=== PATIENT | female | born 1970 | race Caucasian/White ===

== ENCOUNTER 2018-10-17 00:09 | Outpatient (CLI) | payer MEDICAID, SELFPAY ==
--- NOTE | 2018-10-17 15:35 | DI.RAD_ITS ---
SYMPTOMS/DIAGNOSIS: RT GREAT TOE PAIN, ? BUNION, PAIN RT TOES, M79.674, HAS HAD SEVERAL STUBBING INJURIES RIGHT FOOT: Three views. There is normal alignment at the great toe. There is joint space narrowing and osteophyte presence. The bones are normally mineralized. No suspicious lytic or sclerotic lesions are seen. No radiopaque foreign bodies are seen in the soft tissues. 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
== END 2018-10-17 00:29 ==
DX: M79.674 Pain in right toe(s) (principal); M19.071 Primary osteoarthritis, right ankle and foot
CPT/HCPCS: 73630

== ENCOUNTER 2018-10-21 00:02 | Outpatient (CLI) | payer MEDICAID, SELFPAY ==
[2018-10-21 12:48] LABS: ALT 21 U/L (12-78); AST 16 U/L (15-37); Albumin 3.8 g/dL (3.4-5.0); Alkaline Phosphatase 64 U/L (46-116); Anion Gap 6.5 mmol/L (3-11); BUN 18 mg/dL (7-18); CO2 31.5 mmol/L (21.0-32.0); CREATININE 0.66 mg/dL (0.55-1.02); Chloride 106 mmol/L (98-107); Cholesterol 196 mg/dL (50-200); Glucose 87 mg/dL (70-100); HDL Cholesterol 60 mg/dL (40-60); LDL CHOLESTEROL 118 mg/dL (<100); Potassium 4.1 mmol/L (3.5-5.1); Sodium 144 mmol/L (136-145); Total Protein 7.1 g/dL (6.4-8.2); Triglyceride 112 mg/dL (30-150)
== END 2018-10-21 00:22 ==
DX: R41.840 Attention and concentration deficit (principal); M79.676 Pain in unspecified toe(s); G89.29 Other chronic pain
CPT/HCPCS: 36415; 80053; 80061; 83721

== ENCOUNTER 2018-12-18 08:48 | Outpatient (CLI) | payer MEDICAID, SELFPAY ==
[2018-12-18 11:27] LABS: TSH (W/Ref FT4) 0.84 uIU/mL (0.358-3.74)
== END 2018-12-18 09:08 ==
PROVIDERS: Visit Provider Internal Medicine
DX: E04.9 Nontoxic goiter, unspecified (principal)
CPT/HCPCS: 36415; 84443

== ENCOUNTER 2019-07-23 12:48 | Day surgery (SDC) | payer MEDICAID, SELFPAY ==
--- NOTE | 2019-07-23 06:59 | W.UPDATEHP ---
Date of service: 07/23/19 Time of Service: 13:31 Updated H&P Refer to Most Recent Clinic Note/H&P Dated: 07/12/19 H&P was reviewed,patient examined No change has occured in patient's condition since last H&P completed
--- NOTE | 2019-07-23 07:00 | W.COLOREPORT ---
Date of service: 07/23/19 Time of Service: 13:48 Colonoscopy Report Date of procedure: 07/23/19 Pre-op diagnosis general: Colon Cancer Screening Post-op diagnosis procedure note: same (? small polyps, internal hemorrhoids) Procedure: Colonoscopy with bx and hemorrhoid banding Surgeon: Radha Grajeda Anesthesia proc note operative: other (General/ ASA 2/Zane Ayala, VINNIE) Estimated blood loss (mL): 4 Pathology: other (Ascending colon Polyp) Complications: None Disposition: no change Indications: (2) Encounter for screening colonoscopy: The patient is here for Colonoscopy pre-op. Her last screening was in 2011 and was unremarkable. She has a family history of colon cancer in her father. She has not had any bowel habit changes. -Discussed colonoscopy bowel prep as well as the procedure. Discussed possible complications of the procedure to include bleeding, pain, perforation, missed small lesion/polyp, sore throat, aspiration and adverse reaction to the medications. Questions were answered to patient?s satisfaction. No guarantees were implied or given. Prep: Miralax/Dulcolax Procedure Start Time: 13:48 Procedure End Time: 14:11 Retraction Time: 17 minutes Findings: cluster of < 2 mm polyps ?- removed with cold forceps Grade 1 internal hemorrhoids. One was a bit larger so it was banded Procedure Description: After informed consent was obtained the patient was taken to the procedure room and placed in a left decubitous position. Monitors were applied and a time out was done. The patients name, date of , procedure, allergies to medications and metal in their body was reviewed. The patient was then sedated. Once sedated and comfortable a rectal exam was done. External exam was normal. Internal exam revealed a normal sphincter tone and no palpable masses. . The scope was then introduced and retro-flexed. Grade 1 internal hemorrhoids were identified. There were no polyps or masses on retro=flexion. The scope was then advanced to the cecum without difficulty. The TI and appendiceal orifice were identified. The prep was adequate. The scope was then slowly retracted over 17 minutes back into the rectum. There was a cluster of <2 mm polyps just past the cecum in the ascending colon. These small polyps were removed with cold forceps. Once back into the rectum, the scope was removed and the Bandit was placed on the scope. The scope was placed back into the rectum and retro-flexed and the larger of the hemorrhoids was banded without difficulty. The scope was removed and the patient was woken up and taken back to Same day surgery in stable condition. The patient tolerated the procedure well and there were no immediate complications. Follow up: The patient should follow up in 3-5 years unless they develop changes in bowel habits or other new gastrointestinal complaints.
--- NOTE | 2019-07-23 07:01 | W.PM.DSUDISC ---
Discharge Plan Disposition Patient Disposition: HOME Condition: Good Discharge Details Reason For Visit: Colon Cancer Screening Attending Provider: Radha Grajeda Primary Care Provider: Umu Martines Home Meds and New Rx's Prescriptions: Continued ibuprofen 600 mg tablet 600 mg PO QID PRNRF: 0 dexmethylphenidate [Focalin XR] 20 mg capsule,ER biphasic 50-50 20 mg PO QAM MDD 20mg Qty: 30 RF: 0 Discontinued polyethylene glycol 3350 17 gram/dose powder 255 g PO ONCE Qty: 255 RF: 0 bisacodyl [Dulcolax (bisacodyl)] 5 mg tablet,delayed release (DR/EC) 5 mg PO ONCE Qty: 4 RF: 0 Discharge Instructions Instructions: Hemorrhoids (DC), Rubber Band Ligation (DC) Additional Instructions: Findings: small cluster of small polyps One larger internal hemorrhoid that was banded Follow up: 3-5 years Please call if you develop: fevers >101.5 Nausea or Vomiting Abdominal pain that is not transient DAY SURGERY UNIT POST ENDOSCOPY INSTRUCTIONS 1. Because there will be medication in your system for the next 24 hours, you may feel a little sleepy. Your coordination will be affected. Therefore: a. Do not drive or operate dangerous equipment for 24 hours. b. Do not drink alcohol beverages for 24 hours (not even beer). c. Plan to go home and rest for the day. 2. Generally there are no restrictions on your activity after a day or so has gone by, but you may feel a bit fatigued for a few days. 3 After you arrive home you may have a light meal and return to a normal diet as you can tolerate it without feeling sick to your stomach. 4. After surgery, you may feel pain or discomfort. This should be only transient, but if it persists please contact your doctor. 5. If there are any questions regarding the findings of your procedure, please feel free to contact your doctor. 6. If you are unable to contact your doctor with a problem, contact the hospital at [phone]. 7. Continue all your regular medications unless directed otherwise. I understand the above instructions and have no questions. Signature of Patient or Responsible Adult Escort Date/Time Name of Responsible Adult Escort Signature of Nurse Date/Time Activity:: Activity as Tolerated Diet:: High Fiber Discharge Orders Discharge Orders: Discharge Order (Routine); Ordered 07/23/19 Ordered By: Radha Grajeda DS: Diagnosis Discharge Diagnosis (1) History of colonoscopy: Status: Chronic
[2019-07-23 13:04] VITALS: BP 106/71; PULSE 68; RESP 18; TEMP 36.5; O2SAT 99
[2019-07-23] MEDS: Lactated Ringers 1,000 ML 80 ML IV (13:21)
--- NOTE | 2019-07-23 13:31 | HPE_ITS ---
Date of service: 07/23/19 Time of Service: 13:31 Updated H&P Refer to Most Recent Clinic Note/H&P Dated: 07/12/19 H&P was reviewed,patient examined No change has occured in patient's condition since last H&P completed cc: Dictated by: VANNESSA LACKEY MD Dictated: 07/23/19Time: 658 <Electronically signed by Radha Lackey M.D.> Date: 09/22/18 133 Date: Date: Transcribed Date: 07/23/19 Transcribed Time: 658By: MARIA FERNANDA
--- NOTE | 2019-07-23 13:57 | BOWEL_PTH ---
PATIENT: Troy Curiel LOC: [facility] U#:[id number] AGE/SX: 48/F ROOM: RE07/23/[address]: Radha Grajeda MD : 1970 BED: DIS: 07/23/2019 SPEC #: [id number] RECD: 07/24/19 11:00 STATUS: ADDIE REQ #: [id number] JEFFERY: 07/23/19 13:[address]: Radha Grajeda DEPT: Surgical Specimen RECD BY: Aneta Arreola ENTERED: 07/24/19 11:00 SP TYPE: Bowel OTHR DR: Umu Martines APRN Tissues: 1 - BIOPSY BOWEL Procedures: GROSS AND MICRO LEVEL 4 Comments: [id number]
[2019-07-23 15:00] VITALS: BP 121/80; PULSE 63; RESP 18; TEMP 36.1; O2SAT 100
== END 2019-07-23 15:05 | disposition home or self-care (01) ==
LOC: SUR 12:49
PROVIDERS: Visit Provider Surgery
PROC: 0DJD8ZZ Inspection of Lower Intestinal Tract, Via Natural or Artificial Opening Endoscopic (ICD-10-PCS; CPT 45378; principal; 2019-07-23 13:00)
DX: Z12.11 Encounter for screening for malignant neoplasm of colon (principal); K64.0 First degree hemorrhoids; Z80.0 Family history of malignant neoplasm of digestive organs
CPT/HCPCS: 45380; 45398; 81025; 88305; J2250; J3010

== ENCOUNTER 2019-10-29 01:34 | Outpatient (CLI) | payer MEDICAID, SELFPAY ==
--- NOTE | 2019-10-29 10:00 | DI.MAMMO_ITS ---
EXAM: MAMMO SCREENING CLINICAL HISTORY: screening, Z12.39 TECHNIQUE: Mammograms were interpreted according to the usual protocol including computer analysis w [employer] CAD system, tomosynthesis and C-view imaging. COMPARISON: This is a baseline examination. FINDINGS: The breasts are composed of heterogeneously dense fibroglandular densities, Breast Density category C . No suspicious masses or suspicious microcalcifications are seen. No skin thickening or abnormal axillary lymph nodes are seen. There has been no significant change from prior exams. IMPRESSION: BIRADS Category 1, negative mammogram. Yearly screening mammography is recommended. BREAST DENSITY: The mammogram demonstrates the patient's breast tissue is dense. Dense breast tissue is very common and is not abnormal but dense breast tissue can make it harder to find cancer on a ma mmogram. Also, dense breast tissue may increase breast cancer risk. This information about the result of the mammogram report was provided to the patient to raise their awareness. Use this report when y ou speak with the patient about their risks for breast cancer, which includes their family history. A t that time, you may recommend additional screening tests (Ultrasound or MRI) as they might be useful based on their risk. A negative radiographic report should not delay biopsy if a dominant or clinically suspicious mass is present. Up to ten percent of cancers are not identified on mammography. A negative report may reinforce clinical impression. Adenosis and dense breasts may obscure an underlying neoplasm. False positive reports average 6 to 10%.
--- NOTE | 2019-10-29 10:00 | DI.US_ITS ---
EXAM: US THYROID CLINICAL HISTORY: THYROID ENLARGEMENT, THYROID CONDITION, E07.9 TECHNIQUE: Ultrasound performed using standard protocol. COMPARISON: No exams were available for comparison FINDINGS: Right lobe of the thyroid measures 4.2 x 1.1 x 1.6 cm. The left lobe measures 4.3 x 1.4 x 1.4 cm. The overall echotexture is homogeneous. 7 millimeter hypoechoic nodule is seen in the mid left lobe. The thyroid vascularity appears within normal limits. IMPRESSION: TI-RADS category 2. Small benign-appearing nodule in the left lobe. DATA REPOSITORY:
== END 2019-10-29 01:54 ==
PROVIDERS: Visit Provider Nurse Practitioner
DX: Z12.31 Encounter for screening mammogram for malignant neoplasm of breast (principal); E04.1 Nontoxic single thyroid nodule; E07.9 Disorder of thyroid, unspecified
CPT/HCPCS: 77063; 77067; 76536

== ENCOUNTER 2020-10-13 15:55 | Outpatient (CLI) | payer MEDICAID, SELFPAY ==
--- NOTE | 2020-10-13 15:15 | DI.RAD_ITS ---
EXAM: XR KNEE LT 3V AP,LAT,RACHID CLINICAL HISTORY: persistent knee pain TECHNIQUE: COMPARISON: No exams were available for comparison FINDINGS: Three views were obtained. The cartilaginous joint spaces appear fairly well maintained. Minimal ma rginal osteophyte formation noted at multiple sites involving all 3 joints of the knee. IMPRESSION: Mild DJD of the knee. RADIATION DOSE DELIVERED: Total DLP
== END 2020-10-13 15:56 | disposition home or self-care (01) ==
LOC: DIORS 15:56
PROVIDERS: Visit Provider Physician Assistant Surgical
DX: M17.12 Unilateral primary osteoarthritis, left knee (principal)
CPT/HCPCS: 73562

== ENCOUNTER 2020-10-20 02:55 | Outpatient (CLI) | payer MEDICAID, SELFPAY ==
[2020-10-20 08:40] LABS: ALT 21 U/L (14-59); AST 16 U/L (15-37); Albumin 3.8 g/dL (3.4-5.0); Alkaline Phosphatase 73 U/L (46-116); Anion Gap 6.1 mmol/L (3-11); BUN 19 mg/dL (7-18); Bilirubin, Total 0.4 mg/dL (0.2-1.0); CO2 31.9 mmol/L (21.0-32.0); CREATININE 0.8 mg/dL (0.55-1.02); Calcium 9.2 mg/dL (8.5-10.1); Chloride 104 mmol/L (98-107); Glucose 96 mg/dL (74-106); Sodium 142 mmol/L (136-145); Total Protein 7.1 g/dL (6.4-8.2)
== END 2020-10-20 02:56 | disposition home or self-care (01) ==
DX: Z00.00 Encounter for general adult medical examination without abnormal findings (principal); M79.662 Pain in left lower leg
CPT/HCPCS: 36415; 80053

== ENCOUNTER 2020-11-12 00:49 | Outpatient (CLI) | payer MEDICAID, SELFPAY ==
--- NOTE | 2020-11-12 08:45 | DI.DEXA_ITS ---
EXAM: XR DEXA BONE DENSITY W/WO DILIP CLINICAL HISTORY: at risk FOR BONE density loss,Z91.89 TECHNIQUE: Routine DEXA evaluation of the lumbar spine, hip, or forearm. COMPARISON: CR LUMBAR SPINE AP, LAT from 03/16/2010 FINDINGS: Performed on a Hologic unit. Lateral image: No compression fracture evident. Lumbar Spine total T-score: 1.7 Hip total T-score:0.9 Independent reading at the left femoral neck yields a T-score of 2.1 Forearm total T-score: 1.1 IMPRESSION: Bone mineral density measures in the normal range. Fracture risk is low. Note: Any spine fracture indicates 5x risk for subsequent spine fracture and 2x risk for subsequent h ip fracture. World Health Organization criteria for BMD interpretation classify patients: Normal...... T- Score at or above -1.0 Osteopenic... T- Score between -1.0 and -2.5 Osteoporosis... T-Score at or below -2.5
== END 2020-11-12 01:09 ==
DX: M85.89 Other specified disorders of bone density and structure, multiple sites (principal)
CPT/HCPCS: 77080

== ENCOUNTER 2021-06-19 17:51 | Outpatient (REF) | payer MEDICAID, SELFPAY ==
[2021-06-21 16:34] LABS: COVID-19 RT-PCR UVMMC Result Negative (Negative)
== END 2021-06-19 17:52 | disposition home or self-care (01) ==
LOC: LBN 17:51
PROVIDERS: Visit Provider Physician Assistant
DX: Z20.822 Contact with and (suspected) exposure to COVID-19 (principal)
CPT/HCPCS: U0003

== ENCOUNTER 2021-06-30 11:30 | Outpatient (REF) | payer MEDICAID, SELFPAY ==
[2021-07-01 14:40] LABS: COVID-19 RT-PCR UVMMC Result Negative (Negative)
== END 2021-06-30 11:31 | disposition home or self-care (01) ==
LOC: LBN 11:30
PROVIDERS: Visit Provider Family Medicine
DX: Z20.822 Contact with and (suspected) exposure to COVID-19 (principal); R05.8 Other specified cough
CPT/HCPCS: U0003

== ENCOUNTER 2021-07-16 01:11 | Outpatient (CLI) | payer MEDICAID, SELFPAY ==
--- NOTE | 2021-07-16 08:30 | DI.MAMMO_ITS ---
Exam(s) MAMMO SCREENING EXAM: MAMMO SCREENING CLINICAL HISTORY: screening,Z12.39. TECHNIQUE: Bilateral full field digital CC and MLO mammographic images were obtained with 3D tomosyn thesis and utilizing computer aided detection (CAD). COMPARISON: Prior baseline mammogram of October 2019 FINDINGS: Fibroglandular tissue pattern is again noted be moderately dense, this somewhat decreasing the sensit ivity of the mammogram for finding hidden underlying lesions. There are no CAD designations There are no new spiculated masses nor malignant appearing microcalcification groups. There is no significant architectural distortion nor skin thickening-retraction. IMPRESSION: No radiographic evidence of malignancy. BI-RADS Category 1 - Negative Breast Density - Category C - Heterogeneously dense Breast density Category C or D implies that the patient has dense breast tissue. Dense breast tissue can make it harder to find cancer on a mammogram. Dense breast tissue is also associated with an incr eased risk of breast cancer. This information about the result of the mammogram report was provided to the patient to raise their awareness. Use this report when you speak with the patient about their risks for breast cancer, which includes their family history. At that time, you may recommend additional screening tests (Ultrasoun d or MRI) as these tests may add significant information. A negative radiographic report should not delay biopsy if a dominant or clinically suspicious mass is present. Up to ten percent of cancers are not identified on mammography. A negative report may reinforce clinical impression. Adenosis and dense breasts may obscure an underlying neoplasm. False positive reports average 6 to 10%. Patient will receive a letter notifying them of these results.
== END 2021-07-16 01:31 ==
DX: Z12.31 Encounter for screening mammogram for malignant neoplasm of breast (principal)
CPT/HCPCS: 77063; 77067

== ENCOUNTER 2022-02-19 01:16 | Outpatient (CLI) | payer MEDICAID, SELFPAY ==
[2022-02-19 13:10] LABS: ALT 17 U/L (14-59); AST 13 U/L (15-37); Albumin 3.6 g/dL (3.4-5.0); Alkaline Phosphatase 72 U/L (46-116); Anion Gap 5.7 mmol/L (3-11); BUN 17 mg/dL (7-18); Bilirubin, Total 0.7 mg/dL (0.2-1.0); CO2 29.3 mmol/L (21.0-32.0); CREATININE 0.8 mg/dL (0.55-1.02); Calcium 8.5 mg/dL (8.5-10.1); Chloride 106 mmol/L (98-107); Glucose 94 mg/dL (74-106); Potassium 3.8 mmol/L (3.5-5.1); Sodium 141 mmol/L (136-145); TSH (W/Ref FT4) 0.88 uIU/mL (0.36-3.74); Total Protein 6.8 g/dL (6.4-8.2)
== END 2022-02-19 01:17 | disposition home or self-care (01) ==
LOC: LOS 01:16
DX: E07.9 Disorder of thyroid, unspecified (principal); Z00.00 Encounter for general adult medical examination without abnormal findings
CPT/HCPCS: 36415; 80053; 84443

== ENCOUNTER 2022-07-19 01:21 | Outpatient (CLI) | payer MEDICAID, SELFPAY ==
--- NOTE | 2022-07-19 08:30 | DI.MAMMO_ITS ---
Exam(s) MAMMO SCREENING EXAM: MAMMO SCREENING CLINICAL HISTORY: screening,z12.39 TECHNIQUE: Mammograms were interpreted according to the usual protocol including computer analysis w [employer] CAD system, tomosynthesis and C-view imaging. COMPARISON: [id number] FINDINGS: The breasts are composed of heterogeneously dense fibroglandular densities, Breast Density category C . No suspicious masses or suspicious microcalcifications are seen. No skin thickening or abnormal axillary lymph nodes are seen. There has been no significant change from prior exams. IMPRESSION: BI-RADS Category 1, Negative mammogram. Yearly screening mammography is recommended. Breast Density Category C, heterogeneously Dense. The mammogram demonstrates the patient's breast tissue is dense. Dense breast tissue is very common a nd is not abnormal but dense breast tissue can make it harder to find cancer on a mammogram. Also, de nse breast tissue may increase breast cancer risk. This information about the result of the mammogram report was provided to the patient to raise their awareness. Use this report when you speak with the patient about their risks for breast cancer, which includes their family history. At that time, you may recommend additional screening tests (Ultrasound or MRI) as they might be useful based on their r isk. A negative radiographic report should not delay biopsy if a dominant or clinically suspicious mass is present. Up to ten percent of cancers are not identified on mammography. A negative report may reinforce clinical impression. Adenosis and dense breasts may obscure an underlying neoplasm. False positive reports average 6 to 10%.
== END 2022-07-19 01:41 ==
PROVIDERS: PCP Nurse Practitioner Family
DX: Z12.31 Encounter for screening mammogram for malignant neoplasm of breast (principal); R92.8 Other abnormal and inconclusive findings on diagnostic imaging of breast
CPT/HCPCS: 77063; 77067

== ENCOUNTER 2023-03-02 17:19 | Outpatient (CLI) | payer MEDICAID, SELFPAY ==
--- NOTE | 2023-03-02 18:03 | DI.RAD_ITS ---
Exam(s) XR ANKLE RT COMPLETE EXAM: XR ANKLE RT COMPLETE CLINICAL HISTORY: ankle injury, right. TECHNIQUE: 2D digital imaging was performed. Three views. COMPARISON: No exams were available for comparison FINDINGS: BONES: No acute fracture is present. No bony destructive lesion is seen. Small heel spurs. JOINTS: The ankle mortise is normally aligned. SOFT TISSUE: Swelling IMPRESSION: No acute bony abnormality. DATA REPOSITORY: RADIATION DOSE DELIVERED:
--- NOTE | 2023-03-02 18:14 | DI.VRAD_ITS ---
PROCEDURE INFORMATION: Exam: XR Right Ankle Exam date and time: 03/02/2023 17:56 Age: 52 years old Clinical indication: Other: Ankle injury, right TECHNIQUE: Imaging protocol: Radiologic exam of the right ankle. Views: 3 or more views. COMPARISON: CR XR foot RT complete 10/17/2018 15:31 FINDINGS: Bones/joints: Plantar calcaneal spur. Posterior calcaneal spur. No acute fracture or subluxation. Soft tissues: Generalized soft tissue swelling. IMPRESSION: No acute bony pathology. Dictated and Authenticated by: Imelda Alves MD. Ordering:DONYA Nichols MD
== END 2023-03-02 17:39 ==
LOC: LBN 17:30 → DI 17:36
PROVIDERS: PCP Nurse Practitioner Family; Visit Provider Physician Assistant
DX: S99.911A Unspecified injury of right ankle, initial encounter (principal); X58.XXXA Exposure to other specified factors, initial encounter
CPT/HCPCS: 73610

== ENCOUNTER → 2023-05-27 00:42 | Outpatient (CLI) | payer MEDICAID, SELFPAY ==
--- NOTE | 2023-05-27 08:15 | DI.MRI_ITS ---
Exam(s) MR LOWER JOINT RT WO EXAM: MR LOWER JOINT RT WO CLINICAL HISTORY: continued pain 2 months after sprain,m25.571 TECHNIQUE: Multiplanar multisequence MRI was performed without intravenous contrast. COMPARISON: CR,XR XR ANKLE RT COMPLETE from 03/02/2023 FINDINGS: BONES/JOINTS: No fracture or contusion pattern. No bone lesions identified. The talar dome is smooth. The ankle mortise is maintained. There is a small joint effusion. LIGAMENTS: The tibial fibular ligaments are unremarkable. There is thickening of the calcaneal fibul ar ligament. There is thickening and intermediate signal in both the anterior and posterior talofibu lar ligaments. There is edema seen in the surrounding soft tissues. The deltoid ligament is intact. The syndesmosis is unremarkable. Sinus tarsi is normal. MUSCULOTENDINOUS STRUCTURES: Achilles tendon: Unremarkable. There is a tiny amount of fluid in the retrocalcaneal bursa. Plantar fascia: Unremarkable. Anterior Extensor tendons: Unremarkable. Posterior Tibialis: Unremarkable. Flexor Digitorum longus: Unremarkable. Flexor Hallucis longus: Unremarkable. Peroneus longus: Unremarkable. Peroneus brevis:Unremarkable. SOFT TISSUES: Unremarkable. OTHER FINDINGS: None. IMPRESSION: 1. There is thickening and intermediate signal seen in the anterior talofibular, calcaneofibular and posterior talofibular ligaments consistent with sprains/partial tear.No evidence of a full-thickness tear is seen. There is edema seen in the surrounding soft tissues. 2. Small ankle joint effusion. 3. No evidence of a tendon tear. 4. Tiny amount of fluid in the retrocalcaneal bursa. DATA REPOSITORY:
== END ==
PROVIDERS: PCP Nurse Practitioner Family; Visit Provider Nurse Practitioner Family
DX: M25.571 Pain in right ankle and joints of right foot (principal)
CPT/HCPCS: 73721

== ENCOUNTER 2024-10-05 01:21 | Outpatient (CLI) | payer OTHER, SELFPAY ==
[2024-10-05 12:59] LABS: ALT 27 U/L (14-59); AST 21 U/L (15-37); Alkaline Phosphatase 110 U/L (46-116); BUN 13 mg/dL (7-18); Bilirubin, Total 1.04 mg/dL (0.2-1.0); CREATININE 0.9 mg/dL (0.55-1.02); Calcium 9.5 mg/dL (8.5-10.1); Calculated LDL 148 mg/dL (<100); Chloride 103 mmol/L (98-107); Cholesterol 235 mg/dL (<200); Estimated GFR 76.44 (mL/min/1.73m2); Glucose 101 mg/dL (74-106); HDL Cholesterol 68 mg/dL (40-60); Potassium 3.7 mmol/L (3.5-5.1); Sodium 139 mmol/L (136-145); Total Protein 7.6 g/dL (6.4-8.2); Triglyceride 96 mg/dL (<150)
[2024-10-05 19:17] LABS: Hepatitis C Ab w Rflx HCV PCR Negative (Negative)
[2024-10-05 19:20] LABS: HIV-1/2 Ag & Ab Screen Negative (Negative)
== END 2024-10-05 01:22 | disposition home or self-care (01) ==
LOC: LOS 01:21
PROVIDERS: PCP Nurse Practitioner Family; Visit Provider Nurse Practitioner Family
DX: Z13.220 Encounter for screening for lipoid disorders (principal); Z11.59 Encounter for screening for other viral diseases; Z11.4 Encounter for screening for human immunodeficiency virus [HIV]
CPT/HCPCS: 36415; 80053; 80061; 86803; 87389

== ENCOUNTER 2025-03-07 01:13 | Outpatient (CLI) | payer OTHER, SELFPAY ==
--- NOTE | 2025-03-07 14:15 | DI.MAMMO_ITS ---
Exam(s) MAMMO SCREENING EXAM: MAMMO SCREENING CLINICAL HISTORY: screening,Z12.39. TECHNIQUE: Bilateral full field digital CC and MLO mammographic images were obtained with 3D tomosynthesis and utilizing computer aided detection (CAD). COMPARISON: Prior mammograms were reviewed. FINDINGS: There has been no significant change in the appearance and distribution of the fibroglandular tissue which is again noted be moderately dense. There are no obvious new spiculated masses nor new malignant appearing microcalcification groups. There is no significant architectural distortion nor skin thickening-retraction. IMPRESSION: No radiographic evidence of malignancy. BI-RADS Category 1 - Negative Breast Density - Category C - The breast are heterogeneously dense, which may obscure small masses. Breast density Category C or D implies that the patient has dense breast tissue. Dense breast tissue can make it harder to find cancer on a mammogram. Dense breast tissue is also associated with an increased risk of breast cancer. This information about the result of the mammogram report was provided to the patient to raise their awareness. Use this report when you speak with the patient about their risks for breast cancer, which includes their family history. At that time, you may recommend additional screening tests (Ultrasound or MRI) as these tests may add significant information. A negative radiographic report should not delay biopsy if a dominant or clinically suspicious mass is present. Up to ten percent of cancers are not identified on mammography. A negative report may reinforce clinical impression. Adenosis and dense breasts may obscure an underlying neoplasm. False positive reports average 6 to 10%. Patient will receive a letter notifying them of these results.
== END 2025-03-07 01:33 ==
LOC: DI 01:13
PROVIDERS: PCP Nurse Practitioner Family; Visit Provider Nurse Practitioner Family
DX: Z12.31 Encounter for screening mammogram for malignant neoplasm of breast (principal); R92.333 Mammographic heterogeneous density, bilateral breasts
CPT/HCPCS: 77063; 77067

== ENCOUNTER 2025-03-21 10:20 | Outpatient (REF) | payer OTHER, SELFPAY ==
--- NOTE | 2025-03-21 10:20 | PAPFT_PTH ---
PATIENT: Troy Curiel LOC: [facility] U#:[id number] AGE/SX: 54/F ROOM: RE03/21/[address]: Opal Staley DO : 1970 BED: DIS: 03/21/2025 SPEC #: [id number] RECD: 03/21/25 13:14 STATUS: ADDIE REQ #: [id number] JEFFERY: 03/21/25 10:[address]: Opal Staley DEPT: [facility] Cytology RECD BY: Aneta Arreola ENTERED: 03/21/25 13:15 SP TYPE: PAPFT OTHR DR: Manuel Carvalho DNP Tissues: 1 - CX/ENDOCX FOR PAP SMEARS Procedures: PAP THIN PREP/[facility] Screening HPV DNA PROBE Comments: [id number] (HPV 16 & 18/45)
== END 2025-03-21 10:21 | disposition home or self-care (01) ==
LOC: LBN 10:20
PROVIDERS: PCP Nurse Practitioner Family; Visit Provider Obstetrics & Gynecology
DX: Z11.51 Encounter for screening for human papillomavirus (HPV) (principal); Z01.419 Encounter for gynecological examination (general) (routine) without abnormal findings
CPT/HCPCS: 88142; 87624

== ENCOUNTER 2025-03-21 10:54 | Outpatient (CLI) | payer OTHER, SELFPAY ==
[2025-03-21 11:46] LABS: TSH (W/Ref FT4) 0.82 uIU/mL (0.36-3.74)
[2025-03-21 19:28] LABS: FSH 43.9 mIU/mL (See Note)
== END 2025-03-21 10:55 | disposition home or self-care (01) ==
LOC: LBO 10:54
PROVIDERS: PCP Nurse Practitioner Family; Visit Provider Obstetrics & Gynecology
DX: N93.8 Other specified abnormal uterine and vaginal bleeding (principal)
CPT/HCPCS: 36415; 83001; 84146; 84443

== ENCOUNTER 2025-08-09 08:22 | Day surgery (SDC) | payer OTHER, SELFPAY ==
--- NOTE | 2025-08-08 17:01 | W.PM.DSUDISC ---
Date of service: 08/09/25 Discharge Plan Disposition Patient Disposition: Home Condition: Good Discharge Details Reason For Visit: Screening colonoscopy Attending Provider: Tavo Bedolla Primary Care Provider: Manuel Patel Home Meds and New Rx's Prescriptions: Continued multivitamin Tablet 1 tab PO DAILY calcium carb,lactat-vitamin D3 200 mg-6.25 mcg (250 unit) tablet 2 tab PO DAILY tacrolimus [Protopic] 0.1 % ointment 1 applic topical BID ibuprofen 600 mg tablet 600 mg PO QID PRN (Reason: pain) Qty: 90 4RF All Day Allergy (cetirizine) 10 mg capsule 10 mg PO DAILY Qty: 270 3RF dexmethylphenidate 10 mg capsule,ER biphasic 50-50 20 mg PO DAILY MDD 20 mg Qty: 60 0RF Discontinued bisacodyl [Dulcolax (bisacodyl)] 5 mg tablet,delayed release (DR/EC) 5 mg PO ONCE Qty: 4 0RF Rx Instructions: take per colonoscopy instructions polyethylene glycol 3350 17 gram/dose powder 238 g PO ONCE Qty: 238 0RF Rx Instructions: take per colonoscopy instructions Discharge Instructions Additional Instructions: Troy, it was nice seeing you today, and hope you feel well after the colonoscopy. Things went very smoothly. I saw no signs of tumors, polyps, or any other worrisome pathology today. Based on your family history, I recommend a 5-year interval for your next screening colonoscopy. If you have any questions at all, please do not hesitate to ask. 1. If tolerated, consume a soft, low fiber diet for 1-2 days. 2[address] Do not drive, drink alcohol, operate machinery, make critical decisions, or do activities that require coordination or balance for 24 hours. 3. Because air was put into your colon during the procedure, expelling air from your rectum (passing gas or farting) is normal. 4. You may not have a bowel movement for 1-3 days because of the colonoscopy prep. This is normal. 5. Go directly to the emergency room if you notice any of the following: Develop chills (warm to touch), or if you have a thermometer and your temperature is above 101 Difficulty breathing or difficultly swallowing Persistent vomiting Severe abdominal pain, other than gas cramps Severe chest pain Black, tarry stools Any bleeding ? exceeding one tablespoon 6. Call your physician if the site where your intravenous was started becomes red, swollen, painful, and warm to touch. 7. Your physician has reviewed your pre-procedure medications. Please continue to take those medications as previously ordered. You will be given specific information/education regarding any changes to your medications before leaving. Stand Alone Forms: Anesthesia Discharge Inst., Sandy Bellamy (DSU), Portal Information Activity:: Activity as Tolerated Diet:: As Tolerated Discharge Orders Discharge Orders: Discharge Order (Routine); Ordered 08/08/25 Ordered By: Tavo Bedolla DS: Diagnosis Discharge Diagnosis (1) Encounter for screening colonoscopy: Status: Acute Asessment and Plan: Negative screening colonoscopy; based on family history 5-year interval
--- NOTE | 2025-08-08 17:02 | COLE_ITS ---
Date of service: 08/09/25 Time of Service: 10:39 Colonoscopy Report Date of procedure: 08/09/25 Pre-op diagnosis general: Screening colonoscopy Post-op diagnosis procedure note: other (Negative screening colonoscopy) Procedure: Colonoscopy Surgeon: Tavo Bedolla Anesthesia Type: General:No Airway Estimated blood loss (mL): 0 Pathology: none sent Complications: None Disposition: same day Indications: Troy is a 55-year-old woman with a family history of colon cancer who needs a screening colonoscopy Prep: Miralax/Dulcolax Procedure Start Time: 10:09 Procedure End Time: 10:29 Retraction Time: 10 Findings: Negative screening colonoscopy Procedure Description: After the induction of anesthesia, and with Troy in left lateral decubitus position, I began by performing an external anorectal exam.? Perineum and skin were normal, as was the anal verge.? There was no evidence of external hemorrhoids.? Next, I performed a digital rectal exam.? I did not appreciate any abnormal findings.? Next, I advanced a colonoscope into the rectal vault.? I performed retroflexion.? This appeared normal.? Using irrigation, I then advanced the colonoscope beyond the rectal folds and into the sigmoid colon before advancing towards the cecum? The scope was noted to be in the cecum by identification of the ileocecal valve and appendiceal orifice.? I then began withdrawing the colonoscope using repeated irrigation as necessary for full karuna luation of the colonic mucosa. ?Once the scope was withdrawn to the level of the rectum, great care was taken to examine portions of the rectal folds.? Finally, the scope was withdrawn and the patient was brought to the same-day surgery recovery unit as the anesthetic wore off. ?The findings and instructions were shared with the patient prior to discharge. [place] Bowel Prep [place] Bowel Prep Right Colon: 3 Left Colon: 3 Transverse Colon: 3 Total Score: 9
[2025-08-09 08:35] VITALS: BP 128/89; PULSE 80; RESP 20; TEMP 36.2; O2SAT 98
[2025-08-09] MEDS: Lactated Ringers 1,000 ML 80 ML IV (09:01)
--- NOTE | 2025-08-09 09:54 | ANES.PREOP_ITS ---
General Info Date of Service Date Performed: 08/09/25 Height: 5 ft 4 in Weight: 64.8 kg Body Mass Index (BMI): 24.5 Surgical Procedure: Operation Date: 08/09/25 09:50 Proposed Procedure Side Surgeon p Yaneli Bedolla MD Meds Allergies and Home Medications Allergies Allergy/AdvReac Type Severity Reaction Status Date / Time lactose AdvReac Intermediate Intestinal Verified 08/09/25 08:32 distress Home Medication ?Medication ?Instructions ?Recorded calcium carb and lactate 200 2 tab PO DAILY 06/22/21 mg-vitamin D3 6.25 mcg (250 unit) tablet multivitamin 1 tab PO DAILY 06/22/21 ibuprofen 600 mg tablet 600 mg PO QID PRN pain #90 t ab-caps 07/21/21 cetirizine 10 mg capsule (All Day 10 mg PO DAILY #270 caps 08/20/24 Allergy (cetirizine)) tacrolimus 0.1 % topical ointment 1 applic topical BID 02/25/25 (Protopic) dexmethylphenidate 10 mg 20 mg (2 x 10 mg) PO DAILY # 60 caps 07/17/25 capsule,extended release [id number] Current Visit Medications: Current Medications Generic Name Dose Route Start Last Admin Trade Name Freq PRN Reason Stop Dose Admin Ringer's Solution 1,000 mls @ 80 mls/hr 08/09/25 06:00 08/09/25 09:01 IV 08/09/25 23:59 80 mls/hr INFUSION MAEGAN Administration Sodium Chloride 0 ml 08/09/25 06:00 Normal Saline Flush 10 Ml Syr IV 08/09/25 23:59 PRN PRN Sodium Chloride 0 ml 08/09/25 06:00 Normal Saline 10 Ml Vial IJ 08/09/25 23:59 DIRECTED PRN Sterile Water 0 ml 08/09/25 06:00 Water,Injection,Sterile 10 Ml Vial IJ 08/09/25 23:59 DIRECTED PRN PFSH Active Problems Active Problems: Problem Status Onset Code Encounter for screening colonoscopy Acute Z12.11 Unexplained endometrial cells on cervical Pap smear Acute R87.618 Well woman exam with routine gynecological exam Acute Z01.419 DUB (dysfunctional uterine bleeding) Acute N93.8 Skin abnormalities Acute L98.9 Acne Acute L70.9 Rosacea Acute L71.9 Attention and concentration deficit Acute 08/20/18 R41.840 Chronic left-sided thoracic back pain Acute 03/28/17 M54.6, G89.29 Fungal infection of nail Acute 04/17/18 B35.1 Great toe pain Chronic M79.676 History of colonoscopy Chronic ~07/23/19 Z98.890 Tendon nodule Acute M67.90 Pain of left calf Acute M79.662 Knee pain, bilateral Acute M25.561, M25.562 Bilateral primary osteoarthritis of knee Acute M17.0 Right knee pain Acute M25.561 Headache Acute R51.9 Seasonal allergies Acute J30.2 Medical History Medical History Inversion sprain of right ankle (~02/27/23) Strain of left calf muscle Tobacco Smoking/Tobacco Use Status: Former Tobacco Use Passive smoking exposure: Yes Second hand exposure: Yes Alcohol Alcohol Intake: current Alcohol intake frequency: a few times a month Alcohol type: beer, wine and hard liquor Substance Use Substance use: Socially Substance use type: marijuana Counseling provided: none Details: weekends Prental History Past Pregnancies Del. Date GA/Weeks # Preg Succ Route Wgt Sex Labor Lgth Anesth esia Location [facility] 08/29/98 vaginal 2834.952 g Female NVR H Vital Signs and Lab Results Vital Signs Most Recent Vital Signs in EMR: Most Recent Vital Signs Temp Pulse Resp BP Pulse Ox 36.2 C L 80 20 128/89 98 08/09/25 08:35 08/09/25 08:35 08/09/25 08:35 08/09/25 08:35 08/09/25 08:35 Point of Care Results Point of Care Results: POC- Test(urine) Negative 08/09/25 09:08 Anesthesia Assessment and Plan Anesthesia History Personal History: No History of Anesthesia Complications Family History: No Family History of Anesthesia Complications Exercise Tolerance Exercise Tolerance: Metabolic Equivalents>4 Pertinent Negatives Pertinent Negatives: No Symptoms of GERD, No Major Cardiovascular Symptoms or Complaints and No Major Pulmonary Symptoms or Complaints Cardiac & Pulmonary Exam Cardiac Exam: Normal S1/S2 Heart Sounds Pulmonary Exam: Clear Bilateral Breath Sounds Implantable Cardiac Device Does patient have a Pacemaker or an ICD?: No Airway Exam Known Difficult Airway: No Mallampati Class: 2 Mouth Opening: Normal (> 3cm) Thyromental Distance: Greater than 3 cm Neck Range of Motion: Full ROM Neck Circumference: Normal Teeth Condition: Normal Dentition ASA Classification ASA Score: ASA 2 Emergency Case?: No NPO Status NPO Status: NPO Clears >2 hours, Solids >8 hours Status Status: Negative HCG Anesthesia Plan Resuscitation Status: Full Code Anesthesia Technique: General Anesthesia Airway Planned: Natural Airway Monitors Used: Standard Monitors
[2025-08-09 09:55] VITALS: BMI 24.5
[2025-08-09 10:35] VITALS: BP 105/77; PULSE 84; RESP 14; TEMP 36.2; O2SAT 98
--- NOTE | 2025-08-09 10:42 | W.ANESPOSTOP ---
Postoperative Evaluation Date, Time and Location Date Performed: 08/09/25 Time Performed: 10:37 Patient Location: Day Surgery Unit Vital Signs Most Recent Imported Vital Signs: Most Recent Vital Signs Temp Pulse Resp BP Pulse Ox 36.2 C L 84 14 105/77 98 08/09/25 10:35 08/09/25 10:35 08/09/25 10:35 08/09/25 10:35 08/09/25 10:35 Pain Score Most Recent Pain Score: Most Recent Pain Score Pain Level 0 08/09/25 10:35 Assessment Mental Status: Arousable with meaningful communication Airway and Respiratory Function: Patent airway with normal (patient baseline) respiratory exam Cardiovascular Function: Hemodynamically Stable Hydration Status: Adequately Hydrated Nausea & Vomiting: No Nausea or Vomiting Pain: Pt. Denies Any Pain Peripheral Nerve Block: Patient did not receive a nerve block
[2025-08-09 11:04] VITALS: BP 132/76; PULSE 64; RESP 12; TEMP 36.2; O2SAT 99
== END 2025-08-09 11:21 | disposition home or self-care (01) ==
PROVIDERS: PCP Nurse Practitioner Family; Visit Provider Surgery
PROC: 0DJD8ZZ Inspection of Lower Intestinal Tract, Via Natural or Artificial Opening Endoscopic (ICD-10-PCS; CPT 45378; principal; 2025-08-09 09:45)
DX: Z12.11 Encounter for screening for malignant neoplasm of colon (principal); Z80.0 Family history of malignant neoplasm of digestive organs
CPT/HCPCS: 45378; 81025; J2003; J2704